=== PATIENT | male | born 1975 | race Caucasian/White ===

== ENCOUNTER → 2018-01-09 08:41 | Outpatient (CLI) | payer BC, SELFPAY ==
--- NOTE | 2018-01-09 09:22 | XR_ITS ---
XR wrist LT min 3V HISTORY ITS.REASON: INJURY, LT WRIST PAIN ORDERING PHYSICIAN: Candy Giraldo PATIENT AGE: 42 years Comparison: None FINDINGS: There is a faint lucency involving the mid aspect of the scaphoid on the oblique view. This may only be due to prominent trabeculation however, nondisplaced fracture is in addition consideration. Consider navicular view or CT for further evaluation.. No other significant anomalies are evident. IMPRESSION: Possible navicular fracture. Consider navicular views or CT for further evaluation
== END ==
PROVIDERS: PCP Family Medicine; Visit Provider Nurse Practitioner Family
DX: M25.532 Pain in left wrist (principal)
CPT/HCPCS: 73110

== ENCOUNTER → 2018-01-23 07:38 | Outpatient (CLI) | payer BC, SELFPAY ==
--- NOTE | 2018-01-23 07:44 | CT_ITS ---
CT wrist LT wo con HISTORY pain and stiffness following injury with possible fracture on x-ray ITS.REASON: LT WRIST INJURY ORDERING PHYSICIAN: Candy Giraldo PATIENT AGE: 42 years Comparison: None FINDINGS: No obvious fracture apparent. There is widening of the scapholunate space suggesting scapholunate ligament injury. The scapholunate space measures 5 mm. IMPRESSION: 1. No acute fracture apparent. 2. Widening of the scapholunate space suggesting scapholunate ligament injury.
== END ==
PROVIDERS: PCP Nurse Practitioner Family; Visit Provider Nurse Practitioner Family
DX: S69.92XA Unspecified injury of left wrist, hand and finger(s), initial encounter (principal)
CPT/HCPCS: 73200